=== PATIENT | male | born 1980 | race Two or more races ===

== ENCOUNTER 2023-02-15 17:44 | Emergency (ER) | payer SELFPAY ==
[~2023-02-15] VITALS: Ht 193 cm; Wt 75.0 kg
[2023-02-15 18:11] VITALS: BP 124/62
[2023-02-15] MEDS ORDERED: LIDOCAINE HCL 1% 20ML VIAL (Pyxis) INJ INFIL ONE (22:45)
[2023-02-15] MEDS ORDERED: TETANUS, DIPHTHERIA, PERTUSSIS VAC/PF 0.5ML (>10YR OLD) IM ONE ×3 (22:45→23:59)
== END 2023-02-16 00:57 | disposition home or self-care (01) ==
LOC: ER 17:44
DX: S61.412A Laceration without foreign body of left hand, initial encounter (principal); W26.8XXA Contact with other sharp object(s), not elsewhere classified, initial encounter; Y93.89 Activity, other specified; Y92.89 Other specified places as the place of occurrence of the external cause; Y99.8 Other external cause status
CPT/HCPCS: 12001; 73130; 90471; 90715; 99283; J3490; Z7610